=== PATIENT | male | born 2005 | race Two or more races ===

== ENCOUNTER 2025-06-17 08:22 | Day surgery (SDC) | payer MEDICAID, SELFPAY ==
[2025-06-17] VITALS (9 sets, daily range): BP systolic 114–133; BP diastolic 58–78; PULSE 65–89; RESP 12–20; TEMP 36.2–37.1; O2SAT 95–100; BMI 22.2
--- NOTE | 2025-06-17 08:45 | XR_ITS ---
Examination: Humerus 2 views right Technique: Humerus, AP lateral 2 views Date and time of exam: June 17, 2025, 0908 hours INDICATIONS: History of arm fracture 2 months ago FINDINGS: Acute/subacute fracture mid humeral shaft, comminuted, approximately 1 shaft width offset at the fracture site No shoulder dislocation IMPRESSION: Acute comminuted displaced fractures mid humeral shaft
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
[2025-06-17 09:50] LABS: Basophils # (Auto) 0.0 Thou/mm3 (0.0-0.2); Basophils % (Auto) 0 % (0-2.5); Eosinophils # (Auto) 0.1 Thou/mm3 (0.0-0.5); Eosinophils % (Auto) 1 % (0-10); Hematocrit 42.7 % (41.0-53.0); Hemoglobin 14.5 g/dL (13.5-16.0); Immature Granulocytes Auto 0.03 Thou/mm3 (0.00-0.00); Lymphocytes # (Auto) 1.2 Thou/mm3 (1.0-5.0); Lymphocytes % (Auto) 13 % (10-50); Mean Corpuscular HGB Conc 34.0 g/dl (31.0-37.0); Mean Corpuscular Hemoglobin 28.3 pg (25.0-35.0); Mean Corpuscular Volume 83 fL (80-100); Monocytes # (Auto) 0.5 Thou/mm3 (0.0-0.8); Monocytes % (Auto) 5 % (0-12); Neutrophils # (Auto) 7.5 Thou/mm3 (1.8-7.7); Neutrophils % (Auto) 81 % (37-80); Nucleated Red Blood Cell # 0.00 Thou/mm3 (0.00-0.00); Nucleated Red Blood Cell % 0 /100 WBC (0); Platelet Count 300 Thou/mm3 (140-440); RDW Standard Deviation 36.2 fL (35.1-43.9); Red Blood Count 5.13 Miln/mm3 (4.50-5.90); White Blood Count 9.3 Thou/mm3 (4.5-11.0)
[2025-06-17 10:12] LABS: Alanine Aminotransferase 13 U/L (10-49); Albumin, Serum 5.1 gm/dL (3.5-5.0); Albumin/Globulin Ratio 1.5 (1.2-2.2); Alkaline Phosphatase 101 U/L (46-116); Anion Gap 11 (7-16); Aspartate Amino Transferase 21 U/L (0-34); BUN/Creatinine Ratio 10 Ratio (12-20); Bilirubin,Total 0.6 mg/dL (0.3-1.2); Blood Urea Nitrogen 9 mg/dL (9-23); Calcium 10.4 mg/dL (8.3-10.6); Calcium (Corrected) 10.4 mg/dL (8.5-10.1); Carbon Dioxide 28.4 mMol/L (20.0-31.0); Chloride 102 mMol/L (98-107); Creatinine (Component) 0.9 mg/dL (0.6-1.3); Estimated Creatinine Clearance 116.9 mL/min (>60); Globulin 3.3 gm/dL (2.3-3.5); Glucose 93 mg/dL (74-106); Osmolality,Calculated 279 (275-295); Potassium 3.5 mMol/L (3.4-5.1); Sodium 141 mMol/L (136-145); Total Protein 8.4 gm/dL (5.7-8.2); eGFR > 60 See Note
--- NOTE | 2025-06-17 14:00 | XR_ITS ---
EXAMINATION: AP right humerus single view Fluoroscopy Date and time: June 17, 2025, 1547 hours INDICATIONS: Acute displaced fractures mid humeral shaft on plain film study today, operative reduction internal fixation TECHNIQUE AND FINDINGS: Single spot fluoroscopic film of the humerus demonstrating the displaced fracture site Fluoroscopy 6.57-minute radiation dose 6.97 mGy IMPRESSION: Fluoroscopy for reduction internal fixation of humeral shaft fracture:
--- NOTE | 2025-06-17 16:34 | SUR.PHASEI ---
Pt. arrived to recovery via gurney, eyes closed, responds to verbal commands, VSS, lung sounds clear, equal expansion rickie., pt. receiving 8 liters 02 via oxymask, dressing to right upper arm CDI, no active bleeding or redness noted, pulses to right extremity present and palpable, report on pt. received from Armando ALFONSO and Dr. Spencer.
--- NOTE | 2025-06-17 16:46 | PD.SUROPNT ---
Date of Procedure 06/17/25 Pre Op Diagnosis 8 weeks old displaced fracture of the right humerus Post Op Diagnosis Same Procedure Attempted IM nailing of the right humerus. Procedure abandoned Findings Refer dictation Procedure Description Patient was given general endotracheal anesthesia. Once satisfactory anesthesia achieved the part was thoroughly prepped and draped. Intravenous antibiotics was given at the time of anesthesia a skin in incision was made just lateral to the acromial process in the center of the head. Deeper dissection was carried out. C-arm guidance a guidepin was passed and position checked under C-arm and found to be extremely good. Following that the cortex was reamed. Following that a guide wire was passed up to the proximal fracture fragment. Reaming up to 8.5 mm was done. Following that the guidewire was attempted to pass screw the distal fragment fragment. Because the fracture was 8 weeks old there was some overriding. After trying to pass for significant amount of time decision was made to abandon the procedure. I had done open plating few years back hence I decided to close the case and referred to surgeons who have been doing plating of the humerus on regular basis. Wound was irrigated with antibiotic solution. Soft tissue was closed with 2-0 Vicryl and the skin was closed with lisa Patient tolerated procedure well. Estimated blood loss 200 mL Patient will be referred to an orthopedic surgeon who does open procedure for the fracture of the shaft of the humerus. Patient's family member were informed who were in the waiting room about the abandonment of the procedure and further referral to orthopedic surgeon. Patient will be seen in my office next week and will take care of that Anesthesia GETA Pathology / specimen None Estimated Blood Loss 250 Surgeon Lamberto Parisi MD Surgical Staff Operation Date: 06/17/25 15:00 Case Staff Anesthesiologist: Joshua Spencer RN First Assistant: Katina De La Cruz
[2025-06-17] MEDS: fentaNYL CIT INJ 50 mCg/ML AMP 2ML 25 MCG IVP (16:58)
--- NOTE | 2025-06-17 17:40 | SUR.PHASEII ---
Pt. meets criteria for discharge, VSS, no c/o pain or nausea at this time, dressing to right upper arm CDI, no active bleeding, redness or swelling noted, pt. able to move right arm. Discharge instructions provided to pt. and pt.'s cousin with use of senior drafter services, verbalized understanding. Per Dr. Parisi, pt. to take OTC Tylenol PRN for pain. IV discontinued without complications, pt. assisted with getting dressed, pt. escorted to vehicle via w/c with all of belongings by staff.
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
== END 2025-06-17 17:40 | disposition home or self-care (01) ==
LOC: SERX 09:59 → S2EX 10:07
PROVIDERS: Nurse Practitioner Family; Emergency Provider Family Medicine; Referring Provider Orthopaedic Surgery; Visit Provider Orthopaedic Surgery
PROC: (CPT 27759; principal; 2025-06-17 14:45)
DX: S42.351A Displaced comminuted fracture of shaft of humerus, right arm, initial encounter for closed fracture (principal); X58.XXXA Exposure to other specified factors, initial encounter
CPT/HCPCS: 24515; 36415; 73060; 76000; 80053; 85025; 99284; A4649; J0131; J0690; J1100; J1580; J1885; J2250; J2371; J2405; J2704; J2795; J3010; J3490